=== PATIENT | female | born 1990 | race Two or more races ===

== ENCOUNTER 2017-09-14 23:47 | Emergency (ER) | payer OTHER ==
[~2017-09-14] VITALS: Ht 175.3 cm; Wt 79.5 kg
[2017-09-15] MEDS ORDERED: ATOR20TA86 PO (00:19)
[2017-09-15] MEDS ORDERED: LEVO40CA PO (00:19)
[2017-09-15] MEDS ORDERED: FLUC50TA PO (00:19)
[2017-09-15] MEDS ORDERED: GABA-531 PO (00:19)
[2017-09-15] MEDS ORDERED: LISD70CA PO (00:19)
[2017-09-15] MEDS ORDERED: GABA-529 PO (00:19)
[2017-09-15] MEDS ORDERED: LEVO25TA9 PO (00:19)
[2017-09-15] MEDS ORDERED: CarBAMazepine 200 MG TABLET PO ONE (02:15)
[2017-09-15 04:23] VITALS: BP 122/83
== END 2017-09-15 04:39 | disposition home or self-care (01) ==
LOC: EMS 23:48
DX: G50.0 Trigeminal neuralgia (principal); Z79.899 Other long term (current) drug therapy; E78.00 Pure hypercholesterolemia, unspecified; E03.9 Hypothyroidism, unspecified; G51.0 Bell's palsy; Z91.011 Allergy to milk products; Z91.040 Latex allergy status; Z88.8 Allergy status to other drugs, medicaments and biological substances
CPT/HCPCS: 99283